=== PATIENT | male | born 1970 | race Hispanic/Latino ===

== ENCOUNTER 2020-08-17 14:57 | Emergency (ER) | payer SELFPAY ==
--- NOTE | ~2020-08-17 | XR_ITS ---
EXAMINATION: XR finger 2nd RT min 2V DATE: 08/17/2020 15:28 INDICATION: Right hand second digit injury. TECHNIQUE: 3 views of right hand second digit were obtained. COMPARISON: None. FINDINGS: Bone alignment is normal. There is a nondisplaced stellate fracture of tuft of second dista l phalanx. 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 IMPRESSION: 1. Nondisplaced stellate fracture of tuft of second distal phalanx. Reviewed, dictated and finalized at location A.
--- NOTE | 2020-08-17 15:07 | ED.UPPEXIN ---
HPI - Extremity Injury (Upper) General Chief Complaint: Extremity Injury, Upper Stated Complaint: Finger Pain History of Present Illness HPI narrative: Is a 49-year-old male that comes in complaining of a crushing injury to his finger his right second finger. Patient states that his finger is throbbing and he could not sleep well last night. Patient is also having this rash that has started approximately week ago with itchiness on his bilateral arms and back as well as he is complaining of feet pain and hurts when he walks especially on the sole of his foot towards the big toe. Related Data Home Medications Medication Instructions Recorded Confirmed famotidine 08/17/20 Allergies Allergy/AdvReac Type Severity Reaction Status Date / Time No Known Allergies Allergy Unverified 06/16/18 10:17 Review of Systems Review of Systems: Narrative: CONSTITUTIONAL: Denies fever, chills, or sweats. EYES: Denies visual changes, redness, or discharge. ENT: Denies rhinorrhea, congestion, sore throat, or otalgia. CARDIOVASCULAR:Denies chest pain, palpitations, or edema. RESPIRATORY: Denies cough or dyspnea. GASTROINTESTINAL: Denies abdominal pain, nausea, vomiting, or diarrhea. GENITOURINARY: Denies dysuria or hematuria. SKIN:[Denies rash or itching. MUSCULOSKELETAL:Denies back pain, joint pain, or myalgia. Right second finger painful NEUROLOGIC: Denies headache, numbness, or weakness. PSYCHIATRIC:Denies anxiety or depression PMFSH Family History Family History (Updated 10/11/18 @ 15:09 by DOCTOR UNKNOWN) Mother Hypertension Social History Social History Smoking status: Never smoker Second hand tobacco smoke exposure: No Comments At time as signature, I have reviewed and agree with nursing past medical, social, surgical and family history. Please see nursing chart for further information. There is no relevant family history pertinent to the presenting complaint. Exam Narrative: Exam Narrative: GENERAL:Well-appearing, well-nourished, and in no acute distress. HEAD:Normocephalic, atraumatic. EYES: PERRLA and EOMI. ENT: Nares clear, no rhinorrhea or epistaxis. Mucous membranes moist. NECK: Supple. CHEST: Clear to auscultation. No respiratory distress. HEART: Regular rate and rhythm. No murmur heard. Normal peripheral pulses. ABDOMEN: Soft, nontender, nondistended, normal active bowel sounds. EXTREMITIES: Decreased range of motion. Erythema with trace edema. Calluses noted on the bottom of his feet with swelling laterally SKIN: Warm, dry, erythema rash with urticaria. NEURO: No focal deficits. Alert and oriented x3. Course Vital Signs Vital signs: Vital Signs Temperature 97.5 F L 08/17/20 15:14 Pulse Rate 58 L 08/17/20 15:14 Respiratory Rate 16 08/17/20 15:14 Blood Pressure 129/85 08/17/20 15:14 Pulse Oximetry 98 08/17/20 15:14 Temperature 97.5 F L 08/17/20 15:14 Pulse Rate 58 L 08/17/20 15:14 Respiratory Rate 16 08/17/20 15:14 Blood Pressure 129/85 08/17/20 15:14 Pulse Oximetry 98 08/17/20 15:14 Discharge Plan Discharge Clinical Impression: Closed fracture of tuft of distal phalanx of finger Pain, foot Qualifiers: Laterality: bilateral Qualified Code(s): M79.671 - Pain in right foot AD (atopic dermatitis) Qualifiers: Atopic dermatitis type: unspecified Qualified Code(s): L20.9 - Atopic dermatitis, unspecified Patient Disposition: Home, Self-Care Condition: Stable Instructions: Antibiotic Form, Finger Fracture (ED) Additional Instructions: Dr. Leo in [facility] Appt SunAugust 25 @4pm [facility] [address] [employer] Avoid weight bearing until the pain subsides. Ice to the area 20-30 minutes 4-6 times a day Elevate above heart Elastic wrap or orthopedic splint as directed for comfort for the next 5-7 days Tylenol for lesser pain Ibuprofen regularly for the next 2-3 days for the inflammation Follow up with your primary care provider
[2020-08-17 15:14] VITALS: BP 129/85; PULSE 58; RESP 16; TEMP 36.4; O2SAT 98
--- NOTE | 2020-08-18 18:48 | PC.NURSE ---
called and requested dc instructions to be printed in [place] and will provide identification to get dc papers, needs for employer.
== END 2020-08-17 16:07 | disposition home or self-care (01) ==
PROVIDERS: Emergency Provider Nurse Practitioner Family; PCP Family Medicine
DX: S62.660A Nondisplaced fracture of distal phalanx of right index finger, initial encounter for closed fracture (principal); X58.XXXA Exposure to other specified factors, initial encounter; M79.671 Pain in right foot; L20.9 Atopic dermatitis, unspecified; E78.00 Pure hypercholesterolemia, unspecified
CPT/HCPCS: 29130; 73140; 99214; G0463

== ENCOUNTER 2021-04-28 14:36 | Emergency (ER) | payer SELFPAY ==
[2021-04-28 14:45] VITALS: BP 129/72; PULSE 58; RESP 16; TEMP 36.7; O2SAT 99
--- NOTE | 2021-04-28 14:55 | ED.SKABFB ---
HPI - Skin/Abscess/Foreign Bdy General Chief complaint: Skin/Abscess/Foreign Body Stated complaint: rash Time Seen by Provider: 04/28/21 14:55 Source: patient Mode of arrival: ambulatory Limitations: no limitations History of Present Illness HPI narrative: 50 yo M presents with c/o itchy hive like rash for the past year that pops up every 2 or 3 months. Has seen his PCP for this rash and given triamcinolone cream. states that steroid cream padilla his skin and has recently been using diaper rash cream. current hive rash has been present for 1 wk to R upper ABD around to R mid back and to posterior scalp and a few spots to both arms. states rash pops up in different places every time he has it. All systems reviewed and negative except as noted above. Related Data Home Medications Medication Instructions Recorded Confirmed losartan 100 mg PO DAILY 04/28/21 04/28/21 triamcinolone acetonide 1 applic TOPICAL TID 04/28/21 04/28/21 Allergies Allergy/AdvReac Type Severity Reaction Status Date / Time No Known Allergies Allergy Verified 04/28/21 14:54 Review of Systems Review of Systems: CONSTITUTIONAL: Denies fever, chills, or sweats. EYES: Denies visual changes, redness, or discharge. ENT: Denies rhinorrhea, congestion, sore throat, or otalgia. CARDIOVASCULAR: Denies chest pain, palpitations, or edema. RESPIRATORY: Denies cough or dyspnea. GASTROINTESTINAL: Denies abdominal pain, nausea, vomiting, or diarrhea. GENITOURINARY: Denies dysuria or hematuria. SKIN: c/o itchy, hive like rash MUSCULOSKELETAL: Denies back pain, joint pain, or myalgia. NEUROLOGIC: Denies headache, numbness, or weakness. PSYCHIATRIC: Denies anxiety or depression. All other systems reviewed are negative, except as documented in HPI. [facility] Family History Family History Mother Hypertension Social History Social History Smoking status: Never smoker Second hand tobacco smoke exposure: No Comments At time of signature, agree with nursing past medical, surgical, social and family history. There is no relevant family history pertinent to the presenting complaint. Exam Narrative: GENERAL: This is a well-nourished, well-developed patient, in no apparent distress. HEAD: normocephalic, atraumatic. EYES: PERRL. Sclera clear/white. Vision is grossly intact. EARS: External ears normal, auditory canals clear and without drainage, TMs normal without perforation. Hearing grossly intact. NOSE: External nose normal with no obvious nasal discharge, nares without redness, no rhinorrhea. THROAT: Mucous membranes moist, posterior pharynx clear. NECK: Neck supple, non-tender without lymphadenopathy, masses or thyromegaly. CARDIOVASCULAR: Regular rate and rhythm without murmurs, gallops, or rubs. RESPIRATORY: Clear to auscultation. Breath sounds equal bilaterally. No wheezes, rales, or rhonchi. GASTROINTESTINAL: Abdomen soft, non-tender, nondistended. Bowel sounds are active. No hepato-splenomegaly, or palpable masses. No guarding. SKIN: warm, Dry. Good texture and turgor. raised erythematous hive like rash to R side upper ABD and R mid back, posterior scalp and a few lesions to arms. no drainage. no signs of infection. no vesicles concerning for shingles. NEURO: awake, alert, and oriented to person, place and time. There were no obvious focal neurologic abnormalities. EXTREMITIES: No joint tenderness, effusion, or edema noted. No calf tenderness. Negative Homans sign bilaterally. BACK: Nontender without deformity. No CVA tenderness. Course Course Level of Care: Express Care Visit Vital Signs Vital signs: Vital Signs Temperature 36.7 C 04/28/21 14:45 Pulse Rate 58 L 04/28/21 14:45 Respiratory Rate 16 04/28/21 14:45 Blood Pressure 129/72 04/28/21 14:45 Pulse Oximetry 99 04/28/21 14:45 Temperature 36.7 C 04/28/21 14:45 Pulse Rate
== END 2021-04-28 15:15 | disposition home or self-care (01) ==
PROVIDERS: Emergency Provider Nurse Practitioner Family; PCP Family Medicine
DX: L50.9 Urticaria, unspecified (principal); S46.911A Strain of unspecified muscle, fascia and tendon at shoulder and upper arm level, right arm, initial encounter; X58.XXXA Exposure to other specified factors, initial encounter; E78.00 Pure hypercholesterolemia, unspecified; I10 Essential (primary) hypertension
CPT/HCPCS: 99213; G0463

== ENCOUNTER 2021-11-04 16:11 | Emergency (ER) | payer OTHER, SELFPAY ==
--- NOTE | ~2021-11-04 | XR_ITS ---
EXAMINATION: XR chest 2V DATE: 11/04/2021 16:53 INDICATION: Nonproductive cough TECHNIQUE: PA and lateral views of the chest are obtained. COMPARISON: None available FINDINGS: There is mild atelectasis of the lung bases. No pleural effusion or pneumothorax. The cardi omediastinal silhouette is normal. There is mild thoracic spondylosis. IMPRESSION: 1. Mild atelectasis of the lung bases. Reviewed, dictated and finalized at location B.
[2021-11-04 16:27] VITALS: BP 102/61; PULSE 65; RESP 18; TEMP 37.1; O2SAT 97
--- NOTE | 2021-11-04 17:13 | ED.URI ---
HPI - URI/Sore Throat General Chief Complaint: Chest Pain Stated Complaint: cp Time Seen by Provider: 11/04/21 17:14 History of Present Illness HPI Narrative: Carlos Pineda is a 51 yo male witha PMH of HTN, high cholesterol, who states that for the last 2 days he feels like he is congested in his chest and Cough he has his little coughing spurts but nothing that he can cough up any mucus. He has not been diagnosed as having COPD, he does not smoke, he does not have asthma. Denies fever nausea vomiting Related Data Home Medications Medication Instructions Recorded Confirmed losartan 100 mg tablet 100 mg PO DAILY 04/28/21 04/28/21 triamcinolone acetonide 0.1 % 1 applic topical TID 04/28/21 04/28/21 topical cream famotidine 20 mg tablet mg 11/04/21 11/04/21 Allergies Allergy/AdvReac Type Severity Reaction Status Date / Time No Known Allergies Allergy Verified 04/28/21 14:54 Review of Systems Review of Systems: CONSTITUTIONAL: Denies fever, chills, sweats. EYES: Denies visual changes, redness, discharge. ENT: Denies rhinorrhea, congestion, sore throat, otalgia. CARDIOVASCULAR: Denies chest pain, palpitations, edema. RESPIRATORY: Denies dyspnea, wheezing, mild cough, chest tightness GASTROINTESTINAL: Denies abdominal pain, nausea, vomiting, diarrhea. GENITOURINARY: Denies dysuria, hematuria, abnormal discharge SKIN: Denies rash or itching. NEUROLOGIC: Denies numbness, or focal weakness. PSYCHIATRIC: Denies anxiety or depression. [facility] Past Medical History Medical History High cholesterol HTN (hypertension) Family History Family History Mother Hypertension Social History Social History Smoking status: Never smoker Second hand tobacco smoke exposure: No Comments At time of signature, I agree with nursing past medical, surgical, social and family history. There is no relevant family history pertinent to the presenting complaint. Exam Narrative: GENERAL: This is a well-nourished, well-developed patient, in mild distress. HEAD: normocephalic, atraumatic. EYES: . Sclera clear/white. Vision is grossly intact. EARS: External ears normal,. Hearing grossly intact. NOSE: External nose normal without nasal discharge, congestion, nares without redness, no rhinorrhea. THROAT: Mucous membranes moist, NECK: Neck supple, non-tender CARDIOVASCULAR: Regular rate and rhythm without murmurs, gallops, or rubs. RESPIRATORY: Diminished and tight to auscultation. Breath sounds equal bilaterally. No wheezes, rales, or rhonchi. GASTROINTESTINAL: Not done SKIN: warm, intact with no suspicious lesions or rash, good texture and turgor. NEURO: awake, alert, and oriented to person, place and time. There were no obvious focal neurologic abnormalities. Steady gait EXTREMITIES: Normal range of motion. BACK: Nontender without deformity Course Course Emergency Course: Patient here with mild cough and chest tightness X-ray shows atelectasis at the base of both lungs Started on prednisone x5 days Tessalon Perles and albuterol inhaler-Zithromax Level of Care: Express Care Visit Vital Signs Vital signs: Vital Signs Temperature 98.7 F 11/04/21 16:27 Pulse Rate 65 11/04/21 16:27 Respiratory Rate 18 11/04/21 16:27 Blood Pressure 102/61 11/04/21 16:27 Pulse Oximetry 97 11/04/21 16:27 Oxygen Delivery Room Air 11/04/21 16:27 Temperature 98.7 F 11/04/21 16:27 Pulse Rate 65 11/04/21 16:27 Respiratory Rate 18 11/04/21 16:27 Blood Pressure 102/61 11/04/21 16:27 Pulse Oximetry 97 11/04/21 16:27 Oxygen Delivery Room Air 11/04/21 16:27 MDM - URI/Sore Throat Differential Diagnosis Differential diagnosis: Likely upper respiratory infection, sinusitis, bronchitis, pharyngitis and other Critical Care Time Critical Ca
== END 2021-11-04 17:30 | disposition home or self-care (01) ==
PROVIDERS: Emergency Provider Nurse Practitioner; PCP Family Medicine
DX: J40 Bronchitis, not specified as acute or chronic (principal); E78.00 Pure hypercholesterolemia, unspecified; I10 Essential (primary) hypertension
CPT/HCPCS: 71046; 99213; G0463

== ENCOUNTER 2022-04-27 17:25 | Emergency (ER) | payer SELFPAY ==
[2022-04-27 17:49] VITALS: BP 151/91; PULSE 57; RESP 16; TEMP 36.6; O2SAT 99
--- NOTE | 2022-04-27 18:32 | ED.SKABFB ---
HPI - Skin/Abscess/Foreign Bdy General Chief complaint: Skin/Abscess/Foreign Body Stated complaint: RASH Time Seen by Provider: 04/27/22 18:32 Source: patient Mode of arrival: ambulatory Limitations: no limitations History of Present Illness HPI narrative: 51-year-old male presents with hives to trunk area for the past 1-2 days. Reports itching. Has tried Benadryl with no relief. Reports that he had hives April 2021 and was treated with steroids. Has appointment his primary care physician next Sunday but states every time he gets in to see his doctor the hives or any gone. Reports that this is been happening for the past 2 years where he has randomly getting episodes of hives. No new products that he feels that he is allergic to. All systems reviewed and negative except as noted above. Related Data Home Medications Medication Instructions Recorded Confirmed losartan 100 mg tablet 100 mg PO DAILY 04/28/21 04/28/21 famotidine 20 mg tablet mg 11/04/21 11/04/21 Allergies Allergy/AdvReac Type Severity Reaction Status Date / Time No Known Allergies Allergy Verified 04/27/22 17:40 Review of Systems Review of Systems: CONSTITUTIONAL: Denies fever, chills, or sweats. EYES: Denies visual changes, redness, or discharge. ENT: Denies rhinorrhea, congestion, sore throat, or otalgia. CARDIOVASCULAR: Denies chest pain, palpitations, or edema. RESPIRATORY: Denies cough or dyspnea. GASTROINTESTINAL: Denies abdominal pain, nausea, vomiting, or diarrhea. GENITOURINARY: Denies dysuria or hematuria. SKIN: Reports hives and itching. MUSCULOSKELETAL: Denies back pain, joint pain, or myalgia. NEUROLOGIC: Denies headache, numbness, or weakness. PSYCHIATRIC: Denies anxiety or depression. All other systems reviewed are negative, except as documented in HPI. PENDING SALE TO [facility] Past Medical History Medical History High cholesterol HTN (hypertension) Family History Family History Mother Hypertension Social History Social History Smoking status: Never smoker Second hand tobacco smoke exposure: No Comments At time of signature, agree with nursing past medical, surgical, social and family history. There is no relevant family history pertinent to the presenting complaint. Exam Narrative: GENERAL: This is a well-nourished, well-developed patient, in no apparent distress. HEAD: normocephalic, atraumatic. EYES: PERRL. Sclera clear/white. Vision is grossly intact. EARS: External ears normal NOSE: External nose normal NECK: Neck supple, non-tender without lymphadenopathy, masses or thyromegaly. CARDIOVASCULAR: Regular rate and rhythm without murmurs, gallops, or rubs. RESPIRATORY: Clear to auscultation. Breath sounds equal bilaterally. No wheezes, rales, or rhonchi. SKIN: warm, Dry, intact with , good texture and turgor. hives noted to chest abdomen back. NEURO: awake, alert, and oriented to person, place and time. There were no obvious focal neurologic abnormalities. EXTREMITIES: No joint tenderness, effusion, or edema noted. Course Course Level of Care: Express Care Visit Vital Signs Vital signs: Vital Signs Temperature 36.6 C 04/27/22 17:49 Pulse Rate 57 L 04/27/22 17:49 Respiratory Rate 16 04/27/22 17:49 Blood Pressure 151/91 H 04/27/22 17:49 Pulse Oximetry 99 04/27/22 17:49 Oxygen Delivery Room Air 04/27/22 17:49 Temperature 36.6 C 04/27/22 17:49 Pulse Rate 57 L 04/27/22 17:49 Respiratory Rate 16 04/27/22 17:49 Blood Pressure 151/91 H 04/27/22 17:49 Pulse Oximetry 99 04/27/22 17:49 Oxygen Delivery Room Air 04/27/22 17:49 Reviewed MDM - Skin/Abscess/Foreign Bdy MDM Narrative Medical decision making narrative: Patient is aware of diagnosis, understands and agrees to treatment plan. Anticipatory avery
== END 2022-04-27 18:39 | disposition home or self-care (01) ==
PROVIDERS: Emergency Provider Nurse Practitioner Family; PCP Family Medicine
DX: L50.9 Urticaria, unspecified (principal); E78.00 Pure hypercholesterolemia, unspecified; I10 Essential (primary) hypertension
CPT/HCPCS: 99213; G0463

== ENCOUNTER 2022-07-22 11:31 | Emergency (ER) | payer OTHER, SELFPAY ==
--- NOTE | 2022-07-22 11:52 | ED.SKABFB ---
HPI - Skin/Abscess/Foreign Bdy General Chief complaint: Skin/Abscess/Foreign Body Stated complaint: rash Time Seen by Provider: 07/22/22 11:52 Source: patient Mode of arrival: ambulatory Limitations: no limitations History of Present Illness HPI narrative: Patient is a 51-year-old male that presents with rash to scalp right neck and right forearm. Patient states rash was also present on his back yesterday. Patient has had similar rash about 6 months ago and was treated with steroids. Patient states rash resolved with treatment. 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 Denies any shortness of breath, mouth swelling. Denies rash being painful just itchy. Denies any new soaps, detergents, pets or new sleeping arrangements. Related Data Home Medications Medication Instructions Recorded Confirmed losartan 100 mg tablet 100 mg PO DAILY 04/28/21 07/22/22 metformin 850 mg tablet 850 mg PO BID 07/22/22 07/22/22 triamcinolone acetonide 0.1 % 1 applic topical DAILY 07/22/22 07/22/22 topical cream Allergies Allergy/AdvReac Type Severity Reaction Status Date / Time No Known Allergies Allergy Verified 07/22/22 12:19 Review of Systems Review of Systems: All systems reviewed & are unremarkable except as noted in HPI and below Constitutional: Constitutional: Denies body ache(s), Denies chills, Denies fatigue, Denies fever(s), Denies headache(s), Denies malaise and Denies weakness Eyes: Eyes: Denies blurry vision, Denies irritation and Denies loss of vision ENT: Denies otalgia, Denies headache(s), Denies nasal discharge, Denies sinus pain and Denies sore throat Cardiovascular: Cardiovascular: Denies chest pain, Denies irregular heart rhythm and Denies dyspnea Respiratory: Respiratory: Denies dyspnea Gastrointestinal: Gastrointestinal: Denies abdominal pain, Denies melena, Denies hematochezia, Denies diarrhea, Denies nausea and Denies vomiting Musculoskeletal: Musculoskeletal: Denies back pain, Denies myalgias and Denies arthralgias Integumentary/Breasts: Skin/Breast: Reports pruritus and Reports rash Neurologic: Denies headache(s), Denies loss of vision and Denies weakness Psychiatric: Psychiatric: Reports no additional psychiatric complaints Endocrine: Endocrine: Denies fatigue PMFSH Past Medical History Medical History High cholesterol HTN (hypertension) Family History Family History Mother Hypertension Social History Social History Smoking status: Never smoker Second hand tobacco smoke exposure: No Comments At time of signature, agree with nursing past medical, surgical, social and family history. There is no relevant family history pertinent to the presenting complaint. Exam Const: General: cooperative, healthy appearing, comfortable, no acute distress and well nourished Nutritional Appearance: well nourished Orientation/consciousness: patient oriented x3 Limitations: no limitations HENMT: Head: normal to inspection, normocephalic and atraumatic Ears: hearing grossly normal bilaterally and external ears normal Face/Nose/Sinus: Normal external nose present, normal facial exam and face symmetric Face and sinus: normal facial exam and face symmetric Mouth: Yes lip normal Eyes: General: appearance normal, both eyes and all related structures Alignment and Position: alignment normal and position normal Periorbital: periorbital findings normal Eyelids: eyelids normal Pupils: Equal, round and reactive pupils present EOM: EOMs intact bilaterally Neck: Neck: normal visual inspection, full ROM and supple Chest: Chest palpation & inspection: normal inspection of the chest Resp: Effort & Inspection: normal respiratory effort and able to speak in complete sentences Auscultation:
[2022-07-22 11:59] VITALS: BP 124/77; PULSE 57; RESP 18; TEMP 36.2; O2SAT 97
== END 2022-07-22 12:34 | disposition home or self-care (01) ==
PROVIDERS: Emergency Provider Nurse Practitioner Family; PCP Family Medicine
DX: L50.9 Urticaria, unspecified (principal); E78.00 Pure hypercholesterolemia, unspecified; I10 Essential (primary) hypertension
CPT/HCPCS: 99213; G0463

== ENCOUNTER 2022-07-29 18:42 | Emergency (ER) | payer OTHER, SELFPAY ==
[2022-07-29 18:50] VITALS: BP 125/82; PULSE 72; RESP 16; TEMP 36.7; O2SAT 100
--- NOTE | 2022-07-29 19:21 | ED.GENADULT ---
HPI - General Adult General Chief complaint: Skin/Abscess/Foreign Body Stated complaint: intermittent rash for over 1 year Time Seen by Provider: 07/29/22 18:49 Source: patient Mode of arrival: ambulatory Limitations: no limitations History of Present Illness HPI narrative: This is a 51-year-old male who presents to the ED with chief complaint of urticaria like rash x1 year. States this comes and goes. He is unsure of any triggers or allergies. He was seen last week in urgent care and given Medrol Dosepak and this seemed to help the most. However now he has returning lesions. He states the lesions are pruritic. Located all over her head worse in the back of the head. Denies any lip swelling, tongue swelling, shortness of breath. Patient states that he has called his PCP about this but every time that this comes on it seems to be on a weekend. Related Data Home Medications Medication Instructions Recorded Confirmed losartan 100 mg tablet 100 mg PO DAILY 04/28/21 07/22/22 metformin 850 mg tablet 850 mg PO BID 07/22/22 07/22/22 triamcinolone acetonide 0.1 % 1 applic topical DAILY 07/22/22 07/22/22 topical cream Allergies Allergy/AdvReac Type Severity Reaction Status Date / Time No Known Allergies Allergy Verified 07/29/22 18:42 Review of Systems Review of Systems: CONSTITUTIONAL: Denies fever, chills, or sweats. EYES: Denies visual changes, redness, or discharge. ENT: Denies rhinorrhea, congestion, sore throat, or otalgia. CARDIOVASCULAR: Denies chest pain, palpitations, or edema. RESPIRATORY: Denies cough or dyspnea. GASTROINTESTINAL: Denies abdominal pain, nausea, vomiting, or diarrhea. GENITOURINARY: Denies dysuria or hematuria. SKIN: See HPI MUSCULOSKELETAL: Denies back pain, joint pain, or myalgia. NEUROLOGIC: Denies headache, numbness, dizziness, or weakness. PSYCHIATRIC: Denies anxiety or depression. [facility] Past Medical History Medical History High cholesterol HTN (hypertension) Family History Family History Mother Hypertension Social History Social History Smoking status: Never smoker Second hand tobacco smoke exposure: No Exam Narrative: GENERAL: Well-appearing, well-nourished, and in no acute distress. HEAD: Normocephalic, atraumatic. EYES: PERRLA and EOMI. ENT: Nares clear, no rhinorrhea or epistaxis. Mucous membranes moist. Oropharynx without tonsillar hypertrophy exudate or other lesions. There is no edema of the lips, tongue. Airway is intact. NECK: Supple. No adenopathy or masses. CHEST: No respiratory distress. Clear to auscultation. No wheezes rales or rhonchi HEART: Regular rate and rhythm. No murmur heard. Normal peripheral pulses. ABDOMEN: Soft, nontender, nondistended, normal active bowel sounds. MSK: Normal range of motion. No edema. SKIN: Diffuse urticarial rash throughout the body. Seems to be worse in the occiput. NEURO: Alert and oriented x3. No focal deficits. PSYCH: Normal mood and affect. Course Vital Signs Vital signs: Vital Signs Temperature 98.0 F 07/29/22 18:50 Pulse Rate 72 07/29/22 18:50 Respiratory Rate 16 07/29/22 18:50 Blood Pressure 125/82 07/29/22 18:50 Pulse Oximetry 100 07/29/22 18:50 Oxygen Delivery Room Air 07/29/22 18:50 Temperature 98.0 F 07/29/22 18:50 Pulse Rate 72 07/29/22 18:50 Respiratory Rate 16 07/29/22 18:50 Blood Pressure 125/82 07/29/22 18:50 Pulse Oximetry 100 07/29/22 18:50 Oxygen Delivery Room Air 07/29/22 18:50 Medical Decision Making [facility] Narrative Medical decision making narrative: This is a 51-year-old male who is presenting to the ED with chief complaint of an allergic reaction. He reports having an urticarial rash that is intermittent for about 1 year worse over the past week. Vitals are sta
[2022-07-29] MEDS: diphenhydrAMINE HCl CAP 25 MG CAPSULE PO (19:36)
[2022-07-29] MEDS: predniSONE 20 MG TABLET 40 MG PO (19:36)
== END 2022-07-29 19:49 | disposition home or self-care (01) ==
LOC: ANHED 19:28
PROVIDERS: Emergency Provider Physician Assistant; PCP Family Medicine
DX: L50.9 Urticaria, unspecified (principal); I10 Essential (primary) hypertension; E78.00 Pure hypercholesterolemia, unspecified
CPT/HCPCS: 99283; A9270; J7512

== ENCOUNTER 2023-03-29 06:22 | Emergency (ER) | payer OTHER, SELFPAY ==
[2023-03-29] VITALS (13 sets, daily range): BP systolic 137–175; BP diastolic 64–93; PULSE 53–68; RESP 13–23; TEMP 36.6; O2SAT 93–100
--- NOTE | ~2023-03-29 | XR_ITS ---
EXAMINATION: XR chest 2V DATE: 03/29/2023 06:47 INDICATION: Mid to left-sided chest pain. TECHNIQUE: Frontal and lateral views of the chest were obtained. COMPARISON: Chest 2 views 11/04/2021 FINDINGS: There is mild atelectasis at the lung bases No pleural effusion or pneumothorax. The heart size is normal. IMPRESSION: 1. Mild atelectasis at the lung bases. Reviewed, dictated and finalized at location E. [facility]
--- NOTE | 2023-03-29 06:25 | ECG_ITS ---
Measurements Intervals [place] Rate: 55 P: 17 MT: 190 QRS: -14 QRSD: 129 T: 3 QT: 402 QTc: 387 Interpretive Statements SINUS BRADYCARDIA INTRAVENTRICULAR CONDUCTION DELAY BORDERLINE T WAVE ABNORMALITY- INFERIOR LEADS BORDERLINE ECG NO PREVIOUS ECG AVAILABLE FOR COMPARISON Electronically Signed On 03-29-2023 6:40:42 [employer] by Jose Garibay D.O.
[2023-03-29 07:08] LABS: Basophils Percent Auto 0.8 % (0.2-1.2); Eosinophils Absolute Auto 0.2 K/mm3 (0-0.3); Eosinophils Percent Auto 3.3 % (0-4.4); Hematocrit 45.6 % (42.0-52.0); Hemoglobin 15.5 g/dL (14.0-18.0); Immature Granulocyte Absolute 0.02 K/mm3 (0.00-0.031); Immature Granulocyte Percent A 0.4 % (0-0.5); Lymphocytes Absolute Auto 2.33 K/mm3 (0.9-3.2); Lymphocytes Percent Auto 44.6 % (18.3-44.2); Mean Corpuscular Hemoglobin 30.3 pg (26-34); Mean Corpuscular Volume 89.1 fl (80-100); Mean Platelet Volume 9.9 fl (7.4-10.4); Monocytes Absolute Auto 0.4 K/mm3 (0.1-0.6); Monocytes Percent Auto 7.5 % (2.6-8.5); Neutrophils Absolute Auto 2.3 K/mm3 (1.3-6.7); Neutrophils Percent Auto 43.4 % (45.5-73.1); Platelet Count Result 217 k/mm3 (150-375); Red Blood Count 5.12 M/mm3 (4.6-6.20); Red Cell Distribution Width 13.9 % (11.5-14.5); White Blood Count 5.2 K/mm3 (4.5-10.0)
--- NOTE | 2023-03-29 07:09 | PC.NURSE ---
Report given to FREDO Escobar at this time.
--- NOTE | 2023-03-29 07:13 | PC.NURSE ---
Lab called, nurse notified that another green top blood test is needed.
[2023-03-29 07:34] LABS: INR 0.9; Partial Thromboplastin Time 28.5 SECONDS (22.3-36.8); Prothrombin Time 12.9 Seconds (11.1-14.7)
[2023-03-29 08:11] LABS: Alanine Aminotransferase 47 U/L (6-50); Albumin Level 4.5 g/dL (3.5-5.1); Alkaline Phosphatase 70 U/L (38-126); Anion Gap 11 mmol/L (8-16); Aspartate Amino Transferase 42 U/L (17-59); Bilirubin,Total 0.8 mg/dL (0.2-1.3); Blood Urea Nitrogen 10 mg/dL (9-20); Calcium 9.7 mg/dL (8.4-10.2); Carbon Dioxide 23 mmol/L (22-30); Chloride 102 mmol/L (98-107); Estimated CRCL calculation 177 ml/min; Estimated Glomerular Filt Rate > 60; Glucose 114 mg/dL (65-110); Lipase 43 U/L (23-300); Potassium 3.9 mmol/L (3.4-5.0); Sodium 136 mmol/L (137-145); Troponin I < 0.012 ng/mL (0.000-0.034)
--- NOTE | 2023-03-29 09:04 | ED.CHESTPAIN ---
HPI - Chest Pain General Chief Complaint: Chest Pain Stated Complaint: chest pain Time Seen by Provider: 03/29/23 07:23 History of Present Illness HPI narrative: Patient is a 52-year-old male who presents to the emergency department this morning complaining of mid epigastric pain radiating to his stress. Patient states that the pain started in the morning and woke him up from sleep. He denies any history of cardiovascular disease and states that his only medical history is hypertension and diabetes. Patient denies any tobacco use. He says pain is more in the epigastric region than his chest region and does not radiate anywhere outside of his lower chest/epigastrium. Patient denies any shortness of breath, nausea, vomiting, abdominal pain, dysuria, hematuria, constipation, diarrhea, melena, hematochezia, fevers or chills. Patient also denies any headaches, dizziness, lightheadedness, blurry visions, focal weakness, numbness and or tingling. There are no other modifying, alleviating, or precipitating factors at this time. Related Data Home Medications Medication Instructions Recorded Confirmed losartan 100 mg tablet 100 mg PO DAILY 04/28/21 07/22/22 metformin 850 mg tablet 850 mg PO BID 07/22/22 07/22/22 triamcinolone acetonide 0.1 % 1 applic topical DAILY 07/22/22 07/22/22 topical cream Allergies Allergy/AdvReac Type Severity Reaction Status Date / Time No Known Allergies Allergy Verified 03/29/23 06:45 Review of Systems Review of Systems: All systems are reviewed and are negative unless stated otherwise in the HPI. [facility] Past Medical History Medical History High cholesterol HTN (hypertension) Family History Family History Mother Hypertension Social History Social History Smoking status: Never smoker Second hand tobacco smoke exposure: No Exam Narrative: General: Alert, awake, afebrile, in no acute distress. HEENT: PERRL, no rhinorrhea, no post nasal drip, oropharynx clear. Neck: Trachea midline, no JVD, no lymphadenopathy. Cardiovascular: Bradycardic with regular rhythm, no murmurs, rubs or gallops, no peripheral edema. Respiratory: Clear to auscultation bilaterally, no tachypnea, no wheezing, no rhonchi, no rubs, no respiratory distress. Abdomen: Soft, nontender, nondistended, no rebound, no guarding, no peritoneal signs. Musculoskeletal: No joint swelling or deformity, normal muscle tone. Skin: No rashes or petechia, no signs of infection. Psychiatric: Alert and oriented, normal behavior and judgment for situation. Neurological: Alert and oriented to person, place, and time. Follows all commands. No focal deficits, speech is clear and fluent. Course Vital Signs Vital signs: Vital Signs Temperature 98 F 03/29/23 06:37 Pulse Rate 55 L 03/29/23 06:37 Respiratory Rate 19 03/29/23 06:37 Blood Pressure 164/64 H 03/29/23 06:37 Pulse Oximetry 98 03/29/23 06:37 Oxygen Delivery Room Air 03/29/23 06:37 Temperature 98 F 03/29/23 06:37 Pulse Rate 60 03/29/23 11:45 Respiratory Rate 19 03/29/23 11:45 Blood Pressure 140/88 03/29/23 11:45 Pulse Oximetry 95 03/29/23 11:45 Oxygen Delivery Room Air 03/29/23 06:37 MDM - Chest Pain MDM Narrative Medical decision making narrative: The patient was evaluated by myself in the emergency department. History is obtained from patient who is an independent historian and physical exam was performed. External medical records were reviewed at this time. IV was established and pertinent tests were ordered. Patient was administered an oral full-dose chewable aspirin, 4 mg of IV Zofran, and 40 mg of IV Protonix. EKG was obtained which revealed sinus bradycardia at a rate of 55 beats per minute with T-wave inversion in lead 3. EKG was independently int
[2023-03-29] MEDS: ONDANSETRON INJ 4 MG/2 ML VIAL IV PUSH (09:19)
[2023-03-29] MEDS: PANTOPRAZOLE SODIUM IV 40 MG VIAL IV PUSH (09:19)
[2023-03-29] MEDS: ASPIRIN 81 MG CHEWABLE TABLET 324 MG PO (09:19)
[2023-03-29 11:05] LABS: Troponin I 0.027 ng/mL (0.000-0.034)
[2023-03-29 12:28] LABS: Influenza A QL RT-PCR Negative (Negative); Influenza B QL RT-PCR Negative (Negative); SARS-CoV-2 RNA PCR Negative (Negative)
[2023-03-29 14:07] LABS: Troponin I < 0.012 ng/mL (0.000-0.034)
== END 2023-03-29 14:44 | disposition home or self-care (01) ==
PROVIDERS: Student in an Organized Health Care Education/Training Program; Emergency Provider Emergency Medicine; PCP Family Medicine
DX: R10.13 Epigastric pain (principal); K21.9 Gastro-esophageal reflux disease without esophagitis; Z20.822 Contact with and (suspected) exposure to COVID-19; I10 Essential (primary) hypertension; E11.9 Type 2 diabetes mellitus without complications; E78.00 Pure hypercholesterolemia, unspecified; Z79.84 Long term (current) use of oral hypoglycemic drugs; R00.1 Bradycardia, unspecified; I45.9 Conduction disorder, unspecified; R94.31 Abnormal electrocardiogram [ECG] [EKG]
CPT/HCPCS: 36415; 71046; 80053; 83690; 84484; 85025; 85610; 85730; 87636; 93005; 96374; 96375; 99284; A9270; C9113; J2405

== ENCOUNTER 2023-04-18 17:07 | Emergency (ER) | payer OTHER, SELFPAY ==
[2023-04-18 17:16] VITALS: BP 124/77; PULSE 71; RESP 16; TEMP 37; O2SAT 100
--- NOTE | 2023-04-18 17:17 | ED.SKABFB ---
HPI - Skin/Abscess/Foreign Bdy General Chief complaint: Skin/Abscess/Foreign Body Stated complaint: Rash On Back/Allgeries Time Seen by Provider: 04/18/23 17:17 Source: patient Mode of arrival: ambulatory Limitations: no limitations History of Present Illness HPI narrative: 52-year-old male presents with complaint of itchy hives. Patient has been experiencing hives for every 2-3 months for the past several years. Patient had appointment with dermatology last month and missed appointment. Patient has been on tapered steroids several times due to hives. Patient reports hives for the past week. Has been taking Benadryl every day with no relief. Began experiencing sore throat today with redness to left eye. hives to neck, shoulders, bilateral hands. Started to face yesterday. All systems reviewed and negative except as noted above. Related Data Home Medications Medication Instructions Recorded Confirmed losartan 100 mg tablet 100 mg PO DAILY 04/28/21 04/18/23 metformin 850 mg tablet 850 mg PO BID 07/22/22 04/18/23 triamcinolone acetonide 0.1 % 1 applic topical DAILY 07/22/22 04/18/23 topical cream Allergies Allergy/AdvReac Type Severity Reaction Status Date / Time No Known Allergies Allergy Verified 04/18/23 17:36 Review of Systems Review of Systems: CONSTITUTIONAL: Denies fever, chills, or sweats. EYES: Denies visual changes . Itching, redness and drainage to left eye. ENT: Denies rhinorrhea, congestion, sore throat, or otalgia. CARDIOVASCULAR: Denies chest pain, palpitations, or edema. RESPIRATORY: Denies cough or dyspnea. GASTROINTESTINAL: Denies abdominal pain, nausea, vomiting, or diarrhea. GENITOURINARY: Denies dysuria or hematuria. SKIN: Reports rash and itching. MUSCULOSKELETAL: Denies back pain, joint pain, or myalgia. NEUROLOGIC: Denies headache, numbness, or weakness. PSYCHIATRIC: Denies anxiety or depression. All other systems reviewed are negative, except as documented in HPI. [facility] Past Medical History Medical History High cholesterol HTN (hypertension) Family History Family History Mother Hypertension Social History Social History Smoking status: Never smoker Second hand tobacco smoke exposure: No Comments At time of signature, agree with nursing past medical, surgical, social and family history. There is no relevant family history pertinent to the presenting complaint. Exam Narrative: GENERAL: This is a well-nourished, well-developed patient, in no apparent distress. HEAD: normocephalic, atraumatic. EYES: PERRL. Right Sclera clear/white. left sclera and conjunctiva erythematous with purulence drainage. Topical anesthetic was instilled with good anesthesia using 1gtt of opth anesthetic agent (tetracaine). Fluorescein stain of the L eye was performed without uptake of dye. No epithelial defect was noted. NO FB, ulcer or dendritic lesions. Upper lid was everted and no FB or lesions were noted. Normal saline irrigation eye solution was performed and the patient tolerated the procedure well, no adverse reaction or complications. EARS: External ears normal, auditory canals clear and without drainage, TMs normal without perforation. Hearing grossly intact. NOSE: External nose normal with no obvious nasal discharge, nares without redness, no rhinorrhea. THROAT: Mucous membranes moist, Erythematous NECK: Neck supple, non-tender without lymphadenopathy, masses or thyromegaly. CARDIOVASCULAR: Regular rate and rhythm without murmurs, gallops, or rubs. RESPIRATORY: Clear to auscultation. Breath sounds equal bilaterally. No wheezes, rales, or rhonchi. SKIN: warm, Dry, intact with, good texture and turgor. erythematous ice to face, bilateral palm is a hands, neck. NEURO: awake, alert, and oriented to person, place
[2023-04-18] MEDS: predniSONE 20 MG TABLET 40 MG PO (17:46)
== END 2023-04-18 18:00 | disposition home or self-care (01) ==
PROVIDERS: Emergency Provider Nurse Practitioner Family; PCP Family Medicine
DX: L50.9 Urticaria, unspecified (principal); H10.32 Unspecified acute conjunctivitis, left eye; E78.00 Pure hypercholesterolemia, unspecified; I10 Essential (primary) hypertension
CPT/HCPCS: 87081; 87880; 99213; A9270; G0463; J7512

== ENCOUNTER 2023-08-20 18:57 | Emergency (ER) | payer OTHER, SELFPAY ==
--- NOTE | 2023-08-20 19:01 | ED.SKABFB ---
HPI - Skin/Abscess/Foreign Bdy General Chief complaint: Skin/Abscess/Foreign Body Stated complaint: rash on forehead and back Time Seen by Provider: 08/20/23 19:33 Source: patient and RN notes reviewed Mode of arrival: ambulatory Limitations: no limitations History of Present Illness HPI narrative: 52 year old male presents with concern for itchy generalized rash. He reports history of urticaria for which he is waiting to see a specialist, he has already seen Dermatology. He has bouts of this, this latest about started 1 day ago. He takes Benadryl every night. He denies swollen lips, swollen tongue, trouble breathing, vomiting or diarrhea MD complaint: rash Related Data Home Medications Medication Instructions Recorded Confirmed losartan 100 mg tablet 100 mg PO DAILY 04/28/21 08/20/23 metformin 850 mg tablet 850 mg PO BID 07/22/22 08/20/23 triamcinolone acetonide 0.1 % 1 applic topical DAILY 07/22/22 08/20/23 topical cream Allergies Allergy/AdvReac Type Severity Reaction Status Date / Time No Known Allergies Allergy Verified 08/20/23 19:01 Review of Systems Review of Systems: CONSTITUTIONAL: Denies malaise, chills, sweats, or fever. EYES: Denies redness, or discharge. ENT: Denies rhinorrhea, congestion, swollen lips, swollen tongue CARDIOVASCULAR: Denies chest pain, palpitations, or edema. RESPIRATORY: Denies cough or dyspnea. GASTROINTESTINAL: Denies abdominal pain, nausea, vomiting SKIN: Reports itchy rash MUSCULOSKELETAL: Denies joint pain or myalgia. NEUROLOGIC: Denies headache. All systems reviewed & are unremarkable except as noted in HPI and below PMFSH Past Medical History Medical History High cholesterol HTN (hypertension) Family History Family History Mother Hypertension Social History Social History Smoking status: Never smoker Second hand tobacco smoke exposure: No Comments At time of signature, agree with nursing past medical, surgical, social and family history. There is no relevant family history pertinent to the presenting complaint Exam Narrative: GENERAL: Well-appearing, well-nourished, and in no acute distress. HEAD: Normocephalic, atraumatic. EYES: PERRLA, conjunctivae clear, and EOMI. ENT: Mucous membranes moist. Oropharynx without edema, erythema or lesions. NECK: Supple. No lymphadenopathy CHEST: Clear to auscultation. No respiratory distress. HEART: Regular rate and rhythm. SKIN: Warm, dry. Urticarial rash noted to neck, extremities NEURO: Alert and oriented x3. PSYCH: Normal mood and affect Course Course Emergency Course: Patient is aware of diagnosis, understands and agrees to treatment plan. Anticipatory guidance given. Patient agrees to follow-up as directed and is aware of reasons to seek care at the emergency department. Portions of this record may have been created with voice recognition software Level of Care: [facility] Visit Vital Signs Vital signs: Reviewed. MDM - Skin/Abscess/Foreign Bdy MDM Narrative Medical decision making narrative: Does not appear at this time to be erythema multiforme, bullous, SJS, TEN; no evidence at this time to suggest RMSF, endocarditis or Lyme disease; patient looks well, nontoxic and is tolerating oral intake; no neurologic signs or symptoms; no headache, photophobia or neck pain; afebrile; appropriate for initial outpatient treatment; discussed the importance of follow-up, patient agrees; question, viral exanthema, contact dermatitis, allergic dermatitis, eczema, urticaria. No soft palate or uvula edema, no tongue, lip edema or other mucosal involvement, no respiratory compromise, no stridor, no wheezing, no wheezing, no history of syncope, no hypotension, no nausea, vomiting, or diarrhea. Instructed patient to go to nearest ER immediately
[2023-08-20 19:15] VITALS: BP 128/74; PULSE 62; RESP 18; TEMP 37.3; O2SAT 97
== END 2023-08-20 20:20 | disposition home or self-care (01) ==
PROVIDERS: Emergency Provider Nurse Practitioner; PCP Family Medicine
DX: L50.9 Urticaria, unspecified (principal); I10 Essential (primary) hypertension; E78.00 Pure hypercholesterolemia, unspecified
CPT/HCPCS: 99213; G0463

== ENCOUNTER 2023-10-17 17:15 | Emergency (ER) | payer OTHER, SELFPAY ==
[2023-10-17 17:30] VITALS: BP 124/84; PULSE 81; RESP 16; TEMP 36.6; O2SAT 98
--- NOTE | 2023-10-17 18:07 | ED.SKABFB ---
HPI - Skin/Abscess/Foreign Bdy General Chief complaint: Skin/Abscess/Foreign Body Stated complaint: rash Time Seen by Provider: 10/17/23 18:07 Source: patient Mode of arrival: ambulatory Limitations: no limitations History of Present Illness HPI narrative: 53-year-old male presents with complaint of generalized itching. History of hives. Has seen restaurant hospitality manager and given steroid cream. Has been told he needs to see an controller mechanic. Working with insurance to get allergy referral. Last took prednisone in July. this morning woke up with hives to right trunk area. Currently has hives and itching to posterior scalp. All systems reviewed and negative except as noted above. Related Data Allergies Allergy/AdvReac Type Severity Reaction Status Date / Time No Known Allergies Allergy Verified 10/17/23 17:52 Review of Systems Review of Systems: CONSTITUTIONAL: Denies fever, chills, or sweats. EYES: Denies visual changes, redness, or discharge. ENT: Denies rhinorrhea, congestion, sore throat, or otalgia. CARDIOVASCULAR: Denies chest pain, palpitations, or edema. RESPIRATORY: Denies cough or dyspnea. GASTROINTESTINAL: Denies abdominal pain, nausea, vomiting, or diarrhea. GENITOURINARY: Denies dysuria or hematuria. SKIN: Denies rash . Reports itching and hives. MUSCULOSKELETAL: Denies back pain, joint pain, or myalgia. NEUROLOGIC: Denies headache, numbness, or weakness. PSYCHIATRIC: Denies anxiety or depression. All other systems reviewed are negative, except as documented in HPI. PMFSH Past Medical History Medical History High cholesterol HTN (hypertension) Family History Family History Mother Hypertension Social History Social History Smoking status: Never smoker Second hand tobacco smoke exposure: No Comments At time of signature, agree with nursing past medical, surgical, social and family history. There is no relevant family history pertinent to the presenting complaint. Exam Narrative: GENERAL: This is a well-nourished, well-developed patient, in no apparent distress. HEAD: normocephalic, atraumatic. EYES: PERRL. Sclera clear/white. Vision is grossly intact. EARS: External ears normal NOSE: External nose normal NECK: Neck supple, non-tender without lymphadenopathy, masses or thyromegaly. CARDIOVASCULAR: Regular rate and rhythm without murmurs, gallops, or rubs. RESPIRATORY: Clear to auscultation. Breath sounds equal bilaterally. No wheezes, rales, or rhonchi. SKIN: warm, Dry, intact, good texture and turgor. Mild erythematous hives to posterior scalp. NEURO: awake, alert, and oriented to person, place and time. There were no obvious focal neurologic abnormalities. EXTREMITIES: No joint tenderness, effusion, or edema noted. Course Course Level of Care: Express [facility] Visit Vital Signs Vital signs: Vital Signs Temperature 36.6 C 10/17/23 17:30 Pulse Rate 81 10/17/23 17:30 Respiratory Rate 16 10/17/23 17:30 Blood Pressure 124/84 10/17/23 17:30 Pulse Oximetry 98 10/17/23 17:30 Oxygen Delivery Room Air 10/17/23 17:30 Temperature 36.6 C 10/17/23 17:30 Pulse Rate 81 10/17/23 17:30 Respiratory Rate 16 10/17/23 17:30 Blood Pressure 124/84 10/17/23 17:30 Pulse Oximetry 98 10/17/23 17:30 Oxygen Delivery Room Air 10/17/23 17:30 Reviewed MDM - Skin/Abscess/Foreign Bdy MDM Narrative Medical decision making narrative: Patient is aware of diagnosis, understands and agrees to treatment plan. Anticipatory guidance given. Patient agrees to follow-up as directed and is aware of reasons to seek care at the emergency department. Portions of this record may have been created with voice recognition software Discharge Plan Discharge Clinical Impression: Urticaria Patient Disposi
== END 2023-10-17 18:34 | disposition home or self-care (01) ==
PROVIDERS: Emergency Provider Nurse Practitioner Family; PCP Family Medicine
DX: L50.9 Urticaria, unspecified (principal); E78.00 Pure hypercholesterolemia, unspecified; I10 Essential (primary) hypertension
CPT/HCPCS: 99213; G0463

== ENCOUNTER 2023-10-30 17:01 | Emergency (ER) | payer OTHER, SELFPAY ==
[2023-10-30 17:14] VITALS: BP 116/71; PULSE 58; RESP 16; TEMP 37.6; O2SAT 98
--- NOTE | 2023-10-30 17:44 | ED.SKABFB ---
HPI - Skin/Abscess/Foreign Bdy General Chief complaint: Skin/Abscess/Foreign Body Stated complaint: body rash Time Seen by Provider: 10/30/23 17:35 Source: patient, RN notes reviewed and old records reviewed Mode of arrival: ambulatory Limitations: no limitations History of Present Illness HPI narrative: 53-year-old male returns to the [facility] with continued body rash. Had been seen both yesterday and 3 days ago at [facility]. Has been seen multiple times in this [facility] as well for the same issue. Has had multiple doses of prednisone prescribed. reports that and they have talked to insurance and is waiting for the referral to an primer press operator for further evaluation. 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 Treatments prior to arrival: OTC topical medication, Benadryl and corticosteroid (Multiple rounds) Related Data Home Medications Medication Instructions Recorded Confirmed triamcinolone acetonide 0.1 % 1 applic topical BID 10/30/23 10/30/23 topical cream Allergies Allergy/AdvReac Type Severity Reaction Status Date / Time No Known Allergies Allergy Verified 10/30/23 17:14 Review of Systems Review of Systems: All systems reviewed & are unremarkable except as noted in HPI and below Constitutional: Constitutional: Reports no additional constitutional complaints Eyes: Eyes: Reports no additional eye complaints ENT: Reports system reviewed and no additional complaints, except as documented Cardiovascular: Cardiovascular: Reports no additional cardiovascular complaints, Denies chest pain and Denies dyspnea Respiratory: Respiratory: Reports no additional respiratory complaints, Denies chest congestion, Denies cough and Denies dyspnea Gastrointestinal: Gastrointestinal: Reports no additional gastrointestinal complaints, Denies abdominal pain, Denies nausea and Denies vomiting Musculoskeletal: Musculoskeletal: Reports no additional musculoskeletal complaints Integumentary/Breasts: Skin/Breast: Reports as per HPI and Reports rash Neurologic: Reports system reviewed and no additional complaints, except as documented Psychiatric: Psychiatric: Reports no additional psychiatric complaints Allergic/Immunologic: Allergic/Immunologic: Reports no additional allergic/immunologic complaints [facility] Past Medical History Medical History High cholesterol HTN (hypertension) Family History Family History Mother Hypertension Social History Social History Smoking status: Never smoker Second hand tobacco smoke exposure: No Comments At the time of my signature, I reviewed and agree with the nursing past medical, surgical, social, and family history. There is no relevant family history pertinent to the patient complaint. Exam Const: General: cooperative, healthy appearing, comfortable, no acute distress, well developed, alert and well nourished Nutritional Appearance: well nourished and obese Orientation/consciousness: patient oriented x3 Limitations: no limitations HENMT: Head: normal to inspection Ears: hearing grossly normal bilaterally and external ears normal Face/Nose/Sinus: Normal external nose present, Normal nares present, Normal nasal mucous membranes and turbinates present, normal facial exam and face symmetric Face and sinus: normal facial exam and face symmetric Eyes: General: appearance normal, both eyes and all related structures Alignment and Position: alignment normal Periorbital: periorbital findings normal Pupils: Equal, round and reactive pupils present EOM: EOMs intact bilaterally Neck: Neck: normal visual inspection, full ROM, no lymphadenopathy and no meningeal signs Chest: Chest palpation & inspection: normal inspection of the chest Resp: Effort & Inspection: normal respiratory effort and ab
== END 2023-10-30 17:50 | disposition home or self-care (01) ==
PROVIDERS: Emergency Provider Nurse Practitioner; PCP Nurse Practitioner Family
DX: L50.9 Urticaria, unspecified (principal); E78.00 Pure hypercholesterolemia, unspecified; I10 Essential (primary) hypertension
CPT/HCPCS: 99211; G0463

== ENCOUNTER 2025-01-20 08:50 | Emergency (ER) | payer OTHER, SELFPAY ==
[2025-01-20 09:00] VITALS: BP 135/80; PULSE 67; RESP 18; TEMP 36.6; O2SAT 99
[2025-01-20] MEDS: TETRACAINE HCL 0.5% OPHTH SOLN 4 ML BTL LEFT EYE (09:15)
[2025-01-20] MEDS: DACRIOSE EYE IRRIGATION 118 ML BOTTLE LEFT EYE (09:15)
[2025-01-20] MEDS: FLUORESCEIN SOD 1 MG/STRIP LEFT EYE (09:15)
--- NOTE | 2025-01-20 09:37 | ED_ITS ---
HPI - Eye Problem General Chief complaint: Eye Problems Stated complaint: Eyes Irritation Time Seen by Provider: 01/20/25 08:52 Source: patient Mode of arrival: ambulatory Limitations: no limitations History of Present Illness HPI Narrative: Carlos is a 54 year old male patient presenting to the clinic today with c/o left eye discomfort, watering, blurry vision. Got something in his eye yesterday while he was outside. Attempted to flush it out but eye is red, painful, and watering. also reports that he has a hive like rash from his waist on up- patient denies any new environmental changes-soaps, shampoos, detergents, foods, or medications. Has been treated for the hives last week. Finished the steriod 2 days ago and the rash came back. Rash is red, raised, and itching. Denies any chest pain or shortness of breath. Denies any difficulty swallowing or drooling. Has not taken any other medications to treat his symptoms. Related Data Home Medications ?Medication ?Instructions ?Recorded ?Confirmed ?Last Taken ?Type cetirizine 10 mg tablet mg 01/20/25 Unknown History montelukast 10 mg tablet mg 01/20/25 Unknown History Allergies Allergy/AdvReac Type Severity Reaction Status Date / Time No Known Allergies Allergy Verified 01/20/25 09:00 Review of Systems Review of Systems: Pertinent positives per HPI. Patient denies any fever, chills, headache, visual changes, dizziness, cough, shortness of breath, chest pain, palpitations, nausea, vomiting, diarrhea, constipation, abdominal pain, or any urinary issues. PMFSH Past Medical History Medical History High cholesterol HTN (hypertension) Family History Family History Mother Hypertension Social History Social History Second hand tobacco smoke exposure: No Comments At the time of my signature, I reviewed and agree with the nursing past medical, surgical, social, and family history. There is no relevant family history pertinent to the patient complaint. Exam Narrative: General: Well-developed, well nourished, in no apparent distress Head: Normocephalic, atraumatic Eyes: Pupils equally round and reactive to light bilaterally, EOM intact, right sclera and conjunctive clear, no discharge, lids normal, left sclera and conjunctiva mildly injected, no foreign body visualized in the left eye, watery discharge coming from the left eye, Wood's lamp exam performed. Ears: TMs intact and clear, ear canals clear, no drainage, grossly hearing normal. Nose: Nares patent, no discharge, no inflammation, no sinus tenderness. Mouth: Oral pharynx without lesions or masses, good dentition, MMM. Neck: Supple, trachea midline, no enlargement of anterior or posterior cervical nodes, no thyroid masses or goiter palpable. Cardio: Regular rate and rhythm, s1 and s2 normal, no murmur appreciated. Resp: Clear to auscultation bilaterally, no rhonchi, rales, wheezing or rubs Integumentary: [place], warm, and dry, red, raised, hive-like rash to neck, back, chest, and abdomen Course Course Emergency Course: Portions of this record may have been created with voice recognition software. Level of Care: Express Care Visit Vital Signs Vital signs: Vital Signs Temperature 36.6 C 01/20/25 09:00 Pulse Rate 67 01/20/25 09:00 Respiratory Rate 18 01/20/25 09:00 Blood Pressure 135/80 01/20/25 09:00 Pulse Oximetry 99 01/20/25 09:00 Oxygen Delivery Room Air 01/20/25 09:00 Temperature 36.6 C 01/20/25 09:00 Pulse Rate 67 01/20/25 09:00 Respiratory Rate 18 01/20/25 09:00 Blood Pressure 135/80 01/20/25 09:00 Pulse Oximetry 99 01/20/25 09:00 Oxygen Delivery Room Air 01/20/25 09:00 Vital signs reviewed MDM - Eye Problem MDM Narrative Medical decision making narrative: At the time of visit patient is resting comfortably on the exam table. Patient appears to be nontoxic. C/o left eye discomfort, watering, blurry vision. Got something in his eye yesterday while he was outside. Attempted to flush it out but eye is red, painful, and watering. also reports that he has a hive like rash from his waist on up- patient denies any new environmental changes-soaps, lotions, detergents, foods, or medications. Has been treated for the hives last week. Finished the steroid 2 days ago and the rash came back. Rash is red, raised, and itching. Denies any chest pain or shortness of breath. Has not taken any other medications to treat his symptoms.On exam patient has left sclera and conjunctiva mildly injected, no foreign body visualized in the left eye, watery discharge coming from the left eye, red, raised, hive-like rash to neck, back, chest, and abdomen. Wood lamp exam/eye set up ordered. Procedures: 1 drop of topical tetracaine anesthetic was instilled with good anesthesia. Fluorescein stain of the left eye was performed with corneal abrasion noted to the left mid eye and approximately 9:00 of the pupil. No FB, ulcer or dendritic lesions. Upper lid was everted and no FB or lesions were noted. NO David sign. Normal saline irrigation eye solution was performed and the patient tolerated the procedure well, no adverse reaction or complications. Plan: Patient has a left eye corneal abrasion as well as hives. Prescription for tobramycin eyedrops, 10 day taper dose of prednisone, and 10 day dose of Pepcid was sent to the pharmacy. Patient may take Benadryl as needed for rash/itching. Increase fluids and stay well hydrated. Recommend follow up with PCP for allergy testing is hives are recurrent. Supportive measures were discussed with the patient and they voiced understanding discharge instructions and agrees to treatment plan. Return precautions reviewed Differential Diagnosis Differential diagnosis: Likely corneal abrasion, conjunctivitis, periorbital cellulitis, subconjunctival hemorrhage, corneal ulcer, ruptured globe and other (Viral exanthem, cellulitis, bacterial skin infection, hives, allergic reaction) Discharge Plan Discharge Clinical Impression: Acute urticaria Corneal abrasion Qualifiers: Encounter type: initial encounter Laterality: left Qualified Code(s): S05.02XA - Injury of conjunctiva and corneal abrasion without foreign body, left eye, initial encounter Patient Disposition: Home Condition: Stable Instructions: Antibiotic Form, Urticaria (ED), Corneal Abrasion (ED) Additional Instructions: Hives discharge instructions: Take prednisone as directed Take Pepcid as prescribed Avoid hot showers Avoid scratching as this can cause a secondary infection May take Benadryl 25-50mg every 6 hours as needed for itching. Follow up with your PCP in 3-5 days if symptoms persist or sooner if they worsen Go to the Emergency Room if symptoms worsen- fever, rash spreading with treatment shortness of breath, tongue swelling, drooling, or chest pain Instrucciones para el tratamiento de la urticaria: Olivia Lopez De Gutierrez prednisona seg?n las indicaciones. Olivia Lopez De Gutierrez Pepcid seg?n lo prescrito. Evite las duchas calientes. Evite rascarse, ya que esto puede causar collin infecci?n secundaria. Puede kathy Benadryl de 25 a 50 mg cada 6 horas seg?n sea necesario para aliviar la picaz?n. Consulte con [place]ham m?dico de cabecera en 3 a 5 d?as si los s?ntomas persisten o antes si empeoran. Acuda a la zeynep de emergencias si los s?ntomas empeoran: fiebre, sarpullido que se extiende con el tratamiento, dificultad para respirar, hinchaz?n de la lengua, babeo o dolor en el pecho. Corneal abrasion discharge instructions: Practice good hand washing techniques Avoid touching eyes Instill eyedrops as prescribed- tobramycin May use warm moist washcloth to help remove eye discharge If eyes are matted shut-do not pry eyes open-use a warm moist cloth to loosen matting and wipe matter away from eye May take Tylenol/Motrin as needed for pain or fever May take Benadryl as needed for itching Follow-up with your PCP in 3-5 days if symptoms persist or sooner if they worsen Go to the emergency room if you develop any fever that is not controlled by Tylenol or Motrin, loss of vision, eye pain, increase eye swelling,visual changes, headache, confusion, lethargy, weakness, chest pain, or shortness of breath. Instrucciones para el cuidado de la secreci?n por abrasi?n corneal: Practique collin buena t?cnica de lavado de jenny. Evite tocarse los ojos. Instile gotas oft?lmicas seg?n lo prescrito (tobramicina). Puede usar un pa?o tibio y h?medo para ayudar a eliminar la secreci?n ocular. Si los ojos est?n pegados, no los octavio a la fuerza; use un pa?o tibio y h?medo para aflojar la secreci?n y limpiarla. Puede kathy paracetamol (Tylenol/Motrin) seg?n sea necesario para el dolor o la fiebre. Puede kathy difenhidramina (Benadryl) seg?n sea necesario para la picaz?n. Consulte a markham m?dico de cabecera en 3 a 5 d?as si los s?ntomas persisten o antes si empeoran. Acuda a urgencias si presenta fiebre que no se controla con paracetamol (Tylenol/Motrin), p?rdida de visi?n, dolor ocular, aumento de la hinchaz?n ocular, cambios en la visi?n, dolor de maury, confusi?n, letargo, debilidad, dolor en el pecho o dificultad para respirar. Patient Language: Hungarian Prescriptions: New prednisone 10 mg tablet 10 mg PO DAILY Qty: 30 0RF Rx Instructions: 60mg po daily on day 1, 40mg po daily on days 2-4, 30mg po daily on days 5-6, 20mg po daily on days 7-8, 10mg po daily on days 9-10 famotidine [Pepcid] 40 mg tablet 40 mg PO DAILY 10 Days Qty: 10 0RF tobramycin 0.3 % drops 1 drp LEFT EYE Q4H 7 Days Qty: 5 0RF No Action cetirizine 10 mg tablet montelukast 10 mg tablet Follow-up/Referrals: Israel,Roddy Quigley APRN [Primary Care Provider, Unknown] Time of Disposition: 09:23 Quality NIHSS Nursing Documentation ED NIHSS nursing documentation: reviewed/agree
== END 2025-01-20 09:31 | disposition home or self-care (01) ==
PROVIDERS: Emergency Provider Nurse Practitioner Family; PCP Nurse Practitioner Family
DX: L50.9 Urticaria, unspecified (principal); S05.02XA Injury of conjunctiva and corneal abrasion without foreign body, left eye, initial encounter; X58.XXXA Exposure to other specified factors, initial encounter; I10 Essential (primary) hypertension; E78.00 Pure hypercholesterolemia, unspecified
CPT/HCPCS: 99213; A9270; G0463

== ENCOUNTER 2025-02-25 14:39 | Emergency (ER) | payer OTHER, SELFPAY ==
--- NOTE | 2025-02-25 15:32 | ED_ITS ---
HPI - Skin/Abscess/Foreign Bdy General Chief complaint: Wound/Laceration Stated complaint: Nail in foot Time Seen by Provider: 02/25/25 14:40 Source: patient Mode of arrival: ambulatory Limitations: no limitations History of Present Illness HPI narrative: patient is a 54-year-old male who presents after stepping on a nail. Patient's last tetanus shot was in 2018. Patient has removed nail but has not cleaned wound. Denies any significant pain or drainage from area. Related Data Home Medications ?Medication ?Instructions ?Recorded ?Confirmed ?Last Taken ?Type cetirizine 10 mg tablet mg 01/20/25 Unknown History montelukast 10 mg tablet mg 01/20/25 Unknown History Allergies Allergy/AdvReac Type Severity Reaction Status Date / Time No Known Allergies Allergy Verified 02/25/25 15:00 Review of Systems 2 Review of Systems: All systems reviewed & are unremarkable except as noted in HPI and below Constitutional: Constitutional: Denies body ache(s), Denies chills, Denies fatigue, Denies fever(s), Denies headache(s), Denies malaise and Denies weakness Eyes: Eyes: Denies blurry vision, Denies irritation and Denies loss of vision ENT: Denies otalgia, Denies headache(s), Denies nasal discharge, Denies sinus pain and Denies sore throat Cardiovascular: Cardiovascular: Denies chest pain, Denies irregular heart rhythm and Denies dyspnea Respiratory: Respiratory: Denies dyspnea Gastrointestinal: Gastrointestinal: Denies abdominal pain, Denies melena, Denies hematochezia, Denies diarrhea, Denies nausea and Denies vomiting Musculoskeletal: Musculoskeletal: Denies back pain, Denies myalgias and Denies arthralgias Integumentary/Breasts: Skin/Breast: Denies pruritus, Denies rash and Reports wounds Neurologic: Denies headache(s), Denies loss of vision and Denies weakness Psychiatric: Psychiatric: Reports no additional psychiatric complaints Endocrine: Endocrine: Denies fatigue PMFSH Past Medical History Medical History High cholesterol HTN (hypertension) Family History Family History Mother Hypertension Social History Social History (Reviewed 02/25/25 @ 15:39 by NEHEMIAH Fields Smoking status: Never smoker Second hand tobacco smoke exposure: No Comments At time of signature, agree with nursing past medical, surgical, social and family history. There is no relevant family history pertinent to the presenting complaint. Exam 2 Const: General: cooperative, healthy appearing, comfortable, no acute distress and well nourished Nutritional Appearance: well nourished O rientation/consciousness: patient oriented x3 Limitations: no limitations HENMT: Head: normal to inspection, normocephalic and atraumatic Ears: h earing grossly normal bilaterally and external ears normal Face/Nose/Sinus: N ormal external nose present, normal facial exam and face symmetric Face and sinus: normal facial exam and face symmetric Mouth: Yes lip normal Eyes: General: appearance normal, both eyes and all related structures A lignment and Position: alignment normal and position normal Periorbital: p eriorbital findings normal Eyelids: eyelids normal Pupils: Equal, round and reactive pupils present EOM: EOMs intact bilaterally Neck: Neck: normal visual inspection, full ROM and supple Chest: Chest palpation & inspection: normal inspection of the chest Resp: Effort & Inspection: normal respiratory effort and able to speak in complete sentences Auscultation: clear to auscultation bilaterally Cardio: Rate: regular rate Rhythm: regular rhythm Heart sounds: S1 normal heart sound present and S2 normal heart sound present GI: Inspection: normal to inspection Skin: General skin exam: normal color and no rashes or lesions noted Neuro: General: patient oriented x3 and moves all extremities Cranial nerves: Yes Equal, round and reactive pupils present Speech: normal speech Gait exam (Neuro): Normal gait present Extrem: General: normal to inspection, full ROM and no edema Left lower extremity: ankle Details: normal to inspection and normal ROM; no tenderness, no swelling and achilles tendon exam normal and foot Details: normal capillary refill, tenderness Location: of the plantar foot, toes with normal ROM, puncture wound plantar mid single, vascular exam Details: dorsalis pedis pulse present and normal capillary refill and tendon exam active flexion normal and active extension normal; no unusual warmth and no ecchymosis Ankle/foot/toe images: 1. puncture wound Psych: Appearance: grossly normal and well kempt Mental Status: mental status grossly normal Speech and movement: Normal speech and movement present Affect: normal affect Attitude: cooperative Thought process: Normal thought process present Course Course Emergency Course: Patient is aware of diagnosis, understands and agrees to treatment plan. Anticipatory guidance given. Patient agrees to follow-up as directed and is aware of reasons to seek care at the emergency department. Portions of this record may have been created with voice recognition software Level of Care: Express Care Visit Vital Signs Vital signs: Vital Signs Temperature 36.6 C 02/25/25 15:35 Pulse Rate 67 02/25/25 15:35 Respiratory Rate 20 02/25/25 15:35 Blood Pressure 123/80 02/25/25 15:35 Pulse Oximetry 97 02/25/25 15:35 Temperature 36.6 C 02/25/25 15:35 Pulse Rate 67 02/25/25 15:35 Respiratory Rate 20 02/25/25 15:35 Blood Pressure 123/80 02/25/25 15:35 Pulse Oximetry 97 02/25/25 15:35 [facility] MDM Narrative Medical decision making narrative: updated tetanus shot. wound was cleaned and dressed. Will treat with antibiotics empirically Pt well hydrated appearing, in no respiratory distress, hemodynamically stable. Recommend supportive care. The patient is stable at time of discharge the clinical impression was discussed and the patient was given the opportunity to ask questions, which were addressed as completely as possible given the information available at present. Anticipatory guidance and return to care precautions were discussed and the importance of primary care follow-up was stressed and encouraged. The patient voiced understanding of the plan, indications to return, and the need for follow-up. Exam findings show no acute concerns or changes Patient is appropriate for outpatient treatment and follow-up. Differential Diagnosis Differential Diagnosis: puncture wound, cellulitis Medical Records I have reviewed the following patient records and this information was taken into consideration when formulating the assessment and plan.: previous clinic visits Discharge Plan Discharge Clinical Impression: Nail wound of left foot Patient Disposition: Home Condition: Stable Instructions: Puncture Wound in the Foot (ED) Additional Instructions: Wound dressed with topical Bacitracin and sterile gauze. Apply Bactroban after warm soaks BID. Take antibiotics as prescribed. Keep wound covered. Go to the emergency department if you have worsening redness, swelling or pus. Patient Language: Arabic Prescriptions: New amoxicillin-pot clavulanate 875-125 mg tablet 1 tablet PO Q12H 7 Days Qty: 14 0RF mupirocin 2 % ointment 1 applic topical BID Qty: 15 0RF No Action cetirizine 10 mg tablet montelukast 10 mg tablet Follow-up/Referrals: George,Sherice Michele NP [Primary Care Provider, Unknown] - 3 Days Time of Disposition: 15:52
[2025-02-25 15:35] VITALS: BP 123/80; PULSE 67; RESP 20; TEMP 36.6; O2SAT 97
[2025-02-25] MEDS: TETANUS,DIPHTHERIA,AC PERTUSSIS ADULT (0.5 ML) BOOSTRIX IM (15:46)
== END 2025-02-25 15:58 | disposition home or self-care (01) ==
PROVIDERS: Emergency Provider Nurse Practitioner Family; PCP Nurse Practitioner Family
DX: S91.332A Puncture wound without foreign body, left foot, initial encounter (principal); W45.0XXA Nail entering through skin, initial encounter; Z23 Encounter for immunization; I10 Essential (primary) hypertension; E78.00 Pure hypercholesterolemia, unspecified
CPT/HCPCS: 90471; 90715; 99213; G0463